=== PATIENT | female | born 1980 | race Caucasian/White ===

== ENCOUNTER 2020-08-13 23:07 | Emergency (ER) | payer MEDICARE, OTHER ==
[~2020-08-13 23:07] MED LIST: ADIPEX-P37.5 M1 PO; BENTYL20 MG PO; FLEXERIL 10 MG10 MG PO; HYDROCODON-ACE1 EAC6 PO; KLONOPIN2 MG PO; LEXAPRO20 MG PO; LOVASTATIN10 MG PO; MEDROL4 MG PO; NEURONTIN 300300 MG PO; PRILOSEC OTC20 MG PO; PROBIOTIC1 EAC1 PO; PROTONIX40 MG PO; SIMVASTATIN10 MG PO; VITAMIN B-1000 MCG/M IM; VITAMIN D33000 UNIT PO; ZOFRAN4 MG PO
== END 2020-08-14 02:46 | disposition left against medical advice (07) ==
LOC: ER1 23:07
DX: M79.10 Myalgia, unspecified site (principal); R09.89 Other specified symptoms and signs involving the circulatory and respiratory systems; Z53.21 Procedure and treatment not carried out due to patient leaving prior to being seen by health care provider
CPT/HCPCS: 93005

== ENCOUNTER 2020-08-28 01:40 | Emergency (ER) | payer MEDICARE, OTHER ==
[2020-08-28 02:06] LABS: HEMOGLOBIN 16.1 gm/dl (12.3-15.3); RED BLOOD COUNT 4.8 M/UL (4.00-5.10); WHITE BLOOD COUNT 18.3 K/UL (4.5-11.0)
[2020-08-28 03:03] LABS: BUN/CREATININE RATIO 13 (0-10)
== END 2020-08-28 10:00 | disposition left against medical advice (07) ==
LOC: ER1 01:40
PROVIDERS: Emergency Medicine
DX: N83.8 Other noninflammatory disorders of ovary, fallopian tube and broad ligament (principal); R10.12 Left upper quadrant pain; R11.0 Nausea; F17.200 Nicotine dependence, unspecified, uncomplicated; Z87.442 Personal history of urinary calculi; Z87.42 Personal history of other diseases of the female genital tract; Z53.20 Procedure and treatment not carried out because of patient's decision for unspecified reasons
CPT/HCPCS: 36415; 76830; 80053; 81001; 83605; 83690; 84703; 85025; 93005; 96372; 96374; 96375; 99284; J1885; J2270; J2405; J2550; J7030; Q9967

== ENCOUNTER 2020-10-22 01:22 | Emergency (ER) | payer MEDICARE, OTHER | END 2020-10-22 02:20 | disposition left against medical advice (07) | LOC: ER1 01:22 | DX: R10.84 Generalized abdominal pain (principal); E78.5 Hyperlipidemia, unspecified; F17.210 Nicotine dependence, cigarettes, uncomplicated; Z90.710 Acquired absence of both cervix and uterus | CPT/HCPCS: 99283 ==

== ENCOUNTER 2020-12-02 01:57 | Emergency (ER) | payer MEDICARE, OTHER ==
[2020-12-02 04:38] LABS: HEMOGLOBIN 16.4 gm/dl (12.3-15.3); RED BLOOD COUNT 4.9 M/UL (4.00-5.10); WHITE BLOOD COUNT 10.7 K/UL (4.5-11.0)
[2020-12-02 04:51] LABS: BUN/CREATININE RATIO 15 (0-10)
== END 2020-12-02 05:38 | disposition home or self-care (01) ==
LOC: ER1 01:57
PROVIDERS: Physician Assistant
DX: M54.2 Cervicalgia (principal); R07.89 Other chest pain; E11.9 Type 2 diabetes mellitus without complications; J44.9 Chronic obstructive pulmonary disease, unspecified; F17.200 Nicotine dependence, unspecified, uncomplicated; Z90.710 Acquired absence of both cervix and uterus; Z79.899 Other long term (current) drug therapy
CPT/HCPCS: 70450; 71045; 72125; 80053; 82550; 82553; 83874; 84484; 85025; 85379; 93005; 96372; 96374; 96375; 99285; J1100; J1885; J2550; J7050

== ENCOUNTER 2021-01-25 00:26 | Emergency (ER) | payer MEDICARE, OTHER ==
[2021-01-25 01:59] LABS: HEMOGLOBIN 15.8 gm/dl (12.3-15.3); RED BLOOD COUNT 4.76 M/UL (4.00-5.10); WHITE BLOOD COUNT 11.4 K/UL (4.5-11.0)
[2021-01-25 02:16] LABS: BUN/CREATININE RATIO 14 (0-10)
== END 2021-01-25 03:18 | disposition home or self-care (01) ==
LOC: ER1 00:26
PROVIDERS: Emergency Medicine
DX: J44.1 Chronic obstructive pulmonary disease with (acute) exacerbation (principal); R07.9 Chest pain, unspecified
CPT/HCPCS: 71045; 80053; 82550; 82553; 83874; 83880; 84484; 85025; 93005; 96374; 99285; J2405

== ENCOUNTER 2022-01-31 14:25 | Emergency (ER) | payer MEDICARE, OTHER ==
[2022-01-31 15:33] LABS: HEMOGLOBIN 16.9 gm/dl (12.3-15.3); RED BLOOD COUNT 5.13 M/UL (4.00-5.10); WHITE BLOOD COUNT 12.7 K/UL (4.5-11.0)
[2022-01-31 16:04] LABS: BUN/CREATININE RATIO 10 (0-10)
== END 2022-01-31 15:30 | disposition left against medical advice (07) ==
LOC: ER1 14:25
PROVIDERS: Physician Assistant Medical
DX: R07.9 Chest pain, unspecified (principal); F17.210 Nicotine dependence, cigarettes, uncomplicated
CPT/HCPCS: 71046; 80053; 82550; 82553; 84484; 85025; 93005; 99281

== ENCOUNTER 2022-04-17 16:53 | Emergency (ER) | payer MEDICARE, OTHER ==
[2022-04-17 19:17] LABS: RED BLOOD COUNT 4.97 M/UL (4.00-5.10); WHITE BLOOD COUNT 11.5 K/UL (4.5-11.0)
[2022-04-17 19:45] LABS: BUN/CREATININE RATIO 12 (0-10)
== END 2022-04-18 00:10 | disposition left against medical advice (07) ==
LOC: ER1 16:53
PROVIDERS: Emergency Medicine
DX: R10.9 Unspecified abdominal pain (principal); F17.200 Nicotine dependence, unspecified, uncomplicated
CPT/HCPCS: 80053; 81001; 83690; 85025; 99283; Q9967